=== PATIENT | female | born 1955 | race Caucasian/White ===

== ENCOUNTER 2019-02-22 07:19 | Day surgery (SDC) | payer MEDICARE, MEDICAID ==
[2019-02-22] MEDS ORDERED: Ketamine 50 MG/ML (10ML VIAL) ONE (09:09)
--- NOTE | 2019-02-22 10:50 | OP ---
DATE OF PROCEDURE: 02/22/2019 PROCEDURES PERFORMED: Colonoscopy with snare polypectomy. PREMEDICATION: Given by Anesthesiology Department. PREPROCEDURE DIAGNOSES: 1. History of colon polyps. 2. Status post extended right hemicolectomy. POSTPROCEDURE DIAGNOSES: 1. Anastomosis visualized at 55 cm from the anal verge, normal. 2. Descending and sigmoid polyps, 3 to 5 mm, status post polypectomy and retrieved. 3. Mild melanosis coli. 4. Otherwise, normal colon exam. DESCRIPTION OF PROCEDURE: Written consents were obtained prior to procedure. Rectal exam performed was normal. The endoscope was advanced to the cecum. The small bowel colon anastomosis was visualized at 50 cm. Exploration of the small bowel for 30 cm was normal. The anastomosis was patent and normal. In the remaining colon, two sessile polyps measuring between 3 to 5 mm were noted. These polyps were removed with cold snare with good hemostasis and retrieved. The rectal vault appeared normal including retroflexion. Other than mild melanosis coli, the examination was otherwise normal. ASSESSMENT: 1. Status post extended right colectomy with visualized 50 cm remaining colon. 2. Normal anastomosis. 3. Status post polypectomy x2. RECOMMENDATION: Await biopsy results. Job ID: [id number]
== END 2019-02-22 11:40 | disposition home or self-care (01) ==
LOC: SDC 07:19
PROVIDERS: ATTEND Internal Medicine Gastroenterology
PROC: 0DBM8ZX Excision of Descending Colon, Via Natural or Artificial Opening Endoscopic, Diagnostic (ICD-10-PCS; principal; 2019-02-22)
PROC: 0DBN8ZX Excision of Sigmoid Colon, Via Natural or Artificial Opening Endoscopic, Diagnostic (ICD-10-PCS; 2019-02-22)
DX: Z12.11 Encounter for screening for malignant neoplasm of colon (principal); D12.4 Benign neoplasm of descending colon; D12.5 Benign neoplasm of sigmoid colon; K63.89 Other specified diseases of intestine; G40.909 Epilepsy, unspecified, not intractable, without status epilepticus; M81.0 Age-related osteoporosis without current pathological fracture; M19.90 Unspecified osteoarthritis, unspecified site; E03.9 Hypothyroidism, unspecified; D64.9 Anemia, unspecified; Z86.010 Personal history of colon polyps; Z79.899 Other long term (current) drug therapy; Z88.2 Allergy status to sulfonamides; Z88.8 Allergy status to other drugs, medicaments and biological substances; Z90.49 Acquired absence of other specified parts of digestive tract
CPT/HCPCS: 88305